=== PATIENT | female | born 1980 | race American Indian/Alaskan Native ===

== ENCOUNTER 2017-12-11 14:54 | Emergency (ER) | payer MEDICAID ==
[2017-12-11 15:08] VITALS: BP 121/80; PULSE 82; RESP 16; TEMP 98.5; O2SAT 100
--- NOTE | 2017-12-11 16:19 | ED PDOC ---
HPI: Skin/Bite Injury Time Seen by Provider: 12/11/17 15:15 Chief Complaint (Nursing): Bite Chief Complaint (Provider): Bite History Per: Patient History/Exam Limitations: no limitations Onset/Duration Of Symptoms: Hrs (morning) Current Symptoms Are (Timing): Still Present Location Of Injury: Right: Knee Additional Complaint(s): Patient is 37 y/o female presenting to the ED with complaints of a tick bite. Patient states she noticed the tick this morning behind her right knee and removed the tick herself. She denies any fever, chills, redness or swelling at the site of tick bite. She has no other medical complaints. PMD: Karina Rojo Past Medical History Reviewed: Historical Data, Nursing Documentation, Vital Signs Vital Signs: Last Vital Signs Temp 98.5 F 12/11/17 15:05 Pulse 82 12/11/17 15:05 Resp 16 12/11/17 15:05 BP 121/80 12/11/17 15:05 Pulse Ox 100 12/11/17 17:12 - Medical History PMH: Fibromyalgia, Chronic Pain (neck and back) - Surgical History Surgical History: No Surg Hx - Family History Family History: States: Unknown Family Hx - Social History Current smoker - smoking cessation education provided: No Alcohol: None Drugs: Denies - Immunization History Hx Tetanus Toxoid Vaccination: No Hx Influenza Vaccination: No Hx Pneumococcal Vaccination: No - Home Medications Home Medications: Ambulatory Orders Medication Instructions Recorded Advair Diskus 500/50 02/11/13 Azelastine 02/11/13 Diazepam 10 mg PO HS 02/11/13 Epi-Pen 0.3 mg SUBCUT PRN PRN 02/11/13 Fexofenadine 1 tab PO DAILY 02/11/13 Fluticasone 02/11/13 Hydroxyzine 25 mg PO TID 02/11/13 Oxycodone 15 mg PO DAILY PRN 02/11/13 Patanol 0.1% Opht Soln 02/11/13 Pepcid 20 mg PO DAILY 02/11/13 Qnasl 02/11/13 Singulair 10 mg PO DAILY 02/11/13 Spiriva 02/11/13 Ventolin 02/11/13 Clindamycin [Cleocin] 300 mg PO TID #30 cap 01/06/15 Oxycodone HCl/Acetaminophen 1 tab PO Q6 PRN #10 tab 11/18/15 [Percocet 325 mg-5 mg] Clindamycin [Cleocin] 300 mg PO QID #28 cap 07/17/16 Triamcinolone Acetonide [Nasacort 1 spray NS DAILY #1 unit 07/17/16 Allergy 24Hr] traMADol [Ultram] 50 mg PO Q8 PRN #12 tab 07/17/16 - Allergies Allergies/Adverse Reactions: Allergies Allergy/AdvReac Type Severity Reaction Status Date / Time EGG Allergy Intermediate RASH Verified 12/11/17 15:03 FISH Allergy Intermediate RASH Verified 12/11/17 15:03 ibuprofen Allergy URTICARIA Verified 12/11/17 15:03 lecithin, soy Allergy SHORTNESS Verified 12/11/17 15:03 OF BREATH meperidine HCl [From Demerol] Allergy RASH Verified 12/11/17 15:03 Penicillins Allergy RASH Verified 12/11/17 15:03 wheat Allergy RASH Verified 12/11/17 15:03 dairy Allergy SHORTNESS Uncoded 11/18/15 18:17 OF BREATH peanuts Allergy SHORTNESS Uncoded 11/18/15 18:16 OF BREATH Review of Systems ROS Statement: Except As Marked, All Systems Reviewed And Found Negative Constitutional: Negative for: Fever, Chills Skin: Negative for: Other (redness) Neurological: Negative for: Other (swelling) Physical Exam - Reviewed Nursing Documentation Reviewed: Yes Vital Signs Reviewed: Yes - Physical Exam Comments: GENERAL APPEARANCE: Patient is awake, alert, oriented x 3, in no acute distress. SKIN: Warm, dry; (-) cyanosis. LOWER EXTREMITY: Right knee and right lower extremity: (-) deformity, (-) swelling, (-) tenderness; (+) normal ROM, (-) erythema, (-) edema. CARDIOVASCULAR: (+) distal pulse. NEUROLOGIC: (+) distal sensation - ECG O2 Sat by Pulse Oximetry: 100 (RA) Pulse Ox Interpretation: Normal Medical Decision Making Medical Decision Making: Time:15:35 Initial Impression: Tick bite Initial Plan: --Lyme Disease AB(IGG, M) IB --Doryx 200 mg PO 16:25 --Advised to follow up with primary care physician in 1-2 days without fail and for repeat lyme titers in the future. Return to the emergency room at any time for any new or worsening symptoms. Patient states she fully agrees with and understands discharge instructions. States that she agrees with the plan and disposition. Verbalized and repeated discharge instructions and plan. I have given the patient opportunity to ask any additional questions. Scribe Attestation: Documented Misha Carpioishna acting as a scribe for Saadia Morales PA-C. Scribe Attestation: All medical record entries made by the Scribe were at my direction and personally dictated by me. I have reviewed the chart and agree that the record accurately reflects my personal performance of the history, physical exam, medical decision making, and the department course for this patient. I have also personally directed, reviewed, and agree with the discharge instructions and disposition. Disposition - Clinical Impression Clinical Impression: Tick bite - Patient ED Disposition Is Patient to be Admitted: No Counseled Patient/Family Regarding: Studies Performed, Diagnosis, Need For Followup - Disposition Disposition: Routine/Home Disposition Time: 16:00 Condition: STABLE Additional Instructions: Thank you for letting us take care of you today. You were treated for tick bite. The emergency medical care you received today was directed at your acute symptoms. Observe for any appearance of a target rash. Return to the Emergency Department if your symptoms worsen, do not improve, or if you have any other problems. Please contact your doctor in 2 days for re-evaluation and follow up and lyme disease testing in the future. Bring any paperwork you were given at discharge with you along with any medications you are taking to your follow up visit. Our treatment cannot replace ongoing medical care by a primary care provider (PCP) outside of the emergency department. Thank you for allowing the [facility] team to be part of your care today. Instructions: Lyme Disease Test Forms: [employer] (Emirati)
== END 2017-12-11 16:36 | disposition home or self-care (01) ==
LOC: H.ER 14:54
DX: S80.861A Insect bite (nonvenomous), right lower leg, initial encounter (principal); W57.XXXA Bitten or stung by nonvenomous insect and other nonvenomous arthropods, initial encounter; Z88.0 Allergy status to penicillin; M79.7 Fibromyalgia; G89.29 Other chronic pain

== ENCOUNTER 2017-12-22 15:13 | Emergency (ER) | payer OTHER, MEDICAID ==
[2017-12-22 16:07] VITALS: BP 115/78; PULSE 86; RESP 18; TEMP 98; O2SAT 100
[2017-12-22] MEDS ORDERED: Oxycodone/Acetaminophen 5/325 mg Tab PO STA (16:23)
[2017-12-22] MEDS ORDERED: Oxycodone/Acetaminophen 5/325 mg Tab ONE (16:32)
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
== END 2017-12-22 18:29 | disposition home or self-care (01) ==
LOC: H.ER 15:13
DX: M54.2 Cervicalgia (principal); M54.5 Low back pain; M54.9 Dorsalgia, unspecified; G89.29 Other chronic pain; I10 Essential (primary) hypertension; Z88.0 Allergy status to penicillin; M41.9 Scoliosis, unspecified; V43.52XA Car driver injured in collision with other type car in traffic accident, initial encounter